=== PATIENT | male | born 1950 | race Caucasian/White ===

== ENCOUNTER 2016-04-02 00:57 | Emergency (ER) | payer OTHER, BC ==
[~2016-04-02] VITALS: Ht 170.2 cm; Wt 81.9 kg
[2016-04-02 01:06] VITALS: TEMP 36.9; Ht 170.2 cm; Wt 81.9 kg
[2016-04-02] MEDS ORDERED: SODIUM CHLORIDE 0.9% 500ML 500 ML IV STA (01:50)
[2016-04-02] MEDS ORDERED: SODIUM CHLORIDE 0.9% 1000ML 1,000 ML IV STA (01:50)
--- NOTE | 2016-04-02 01:57 | EMERGENCY ROOM VISIT NOTE ---
History Report prepared by Logan: Purnima Loza Under the Supervision of: Dr. Cher Parada M.D. First contact with patient: 01:36 Chief Complaint: DEHYDRATION Stated Complaint: VOMITING,DRY MOUTH,CAN'T URINATE Nursing Triage Summary: Patient ambulatory to triage, states "We live in [place] and are here to visit out daughter. This morning, I started getting nauseated. I have vomited a few times today. My mouth is very dry. I haven't urinated since 1800 this evening. I was shivering a lot throughout the day today." Patient denies pain or diarrhea. PMH: "Antibiodies attacking my kidney". History of Present Illness The patient is a 65 year old male who presents to the Emergency Room with complaints of multiple episodes of vomiting since yesterday. He notes that he vomited about 5 times since yesterday morning. His symptoms began while he was travelling from [place] to [place] to visit his daughter. Currently, he complains of a dry mouth. He feels that he is dehydrated, as he has not urinated in 8 hours. Denies fever, chest pain, shortness of breath, abdominal pain, diarrhea, rectal bleeding, or other complaints. He is not a smoker. The patient has a history of proteinuria. Source of History: patient Onset: yesterday morning Position: other (GI) Symptom Intensity: 5 episodes Quality: other (vomiting) Timing: other (episodic) Associated Symptoms: + urinary symptoms (decreased output), No SOB, No abdominal pain, No chest pain, No diarrhea, No fevers Review of Systems See HPI for pertinent positives & negatives. A total of 10 systems reviewed and were otherwise negative. Past Medical & Surgical Medical Problems: (1) Hyperlipidemia (2) Proteinuria Family History No pertinent family history stated. Social History Smoking Status: Never Smoker Marital Status: Housing Status: lives with family Occupation Status: retired Current/Historical Medications Scheduled Aspirin (Aspirin Ec), 81 MG PO DAILY Atorvastatin (Lipitor), 10 MG PO DAILY Tacrolimus (Prograf), 1.5 MG PO QAM Tacrolimus (Prograf), 1 MG PO HS Allergies Coded Allergies: No Known Allergies (Unverified , 04/02/16) Physical Exam Vital Signs Date Time Temp Pulse Resp B/P Pulse Ox O2 Delivery O2 Flow Rate FiO2 04/02/16 06:50 70 19 110/67 97 Room Air 04/02/16 05:54 70 20 101/64 96 Room Air 04/02/16 02:40 74 04/02/16 02:33 74 17 100/66 93 04/02/16 01:06 36.9 77 18 103/62 96 Room Air Physical Exam Vital signs reviewed. General: Elderly, Well-appearing 65 year old male, in no significant distress. HEENT: No scleral icterus, PERRLA, neck supple. Atraumatic. Dry mucous membranes Cardiovascular: Regular rate and rhythm, no extra sounds. Pulmonary: Clear to auscultation bilaterally, normal work of breathing. Abdomen: Soft, nontender, nondistended, positive bowel sounds, no tympani. Musculoskeletal: Atraumatic, no peripheral edema. No CVA tenderness bilaterally Neurologic: Patient awake alert and oriented x 3, full strength in all 4 extremities. Cranial nerves 2 through 12 grossly intact. Skin: Warm, dry, no rash Medical Decision & Procedures Laboratory Results 04/02/16 01:20 Red Blood Count 4.18, Mean Corpuscular Volume 90.0, Mean Corpuscular Hemoglobin 31.3, Mean Corpuscular Hemoglobin Concent 34.8, Mean Platelet Volume 9.8, Neutrophils (%) (Auto) 88.9, Lymphocytes (%) (Auto) 4.5, Monocytes (%) (Auto) 5.4, Eosinophils (%) (Auto) 0.8, Basophils (%) (Auto) 0.2, Neutrophils # (Auto) 9.98, Lymphocytes # (Auto) 0.50, Monocytes # (Auto) 0.61, Eosinophils # (Auto) 0.09, Basophils # (Auto) 0.02 04/02/16 01:20 Test 04/02/16 01:20 04/02/16 03:15 04/02/16 04:52 White Blood Count 11.22 K/uL (4.8-10.8) Red Blood Count 4.18 M/uL (4.7-6.1) Hemoglobin 13.1 g/dL (14.0-18.0) Hematocrit 37.6 % (42-52) Mean Corpuscular Volume 90.0 fL (80-100) Mean Corpuscular Hemoglobin 31.3 pg (25-34) Mean Corpuscular Hemoglobin Concent 34.8 g/dl (32-36) Platelet Count 209 K/uL (130-400) Mean Platelet Volume 9.8 fL (7.4-10.4) Neutrophils (%) (Auto) 88.9 % Lymphocytes (%) (Auto) 4.5 % Monocytes (%) (Auto) 5.4 % Eosinophils (%) (Auto) 0.8 % Basophils (%) (Auto) 0.2 % Neutrophils # (Auto) 9.98 K/uL (1.4-6.5) Lymphocytes # (Auto) 0.50 K/uL (1.2-3.4) Monocytes # (Auto) 0.61 K/uL (0.11-0.59) Eosinophils # (Auto) 0.09 K/uL (0-0.5) Basophils # (Auto) 0.02 K/uL (0-0.2) RDW Standard Deviation 41.0 fL (36.4-46.3) RDW Coefficient of Variation 12.6 % (11.5-14.5) Immature Granulocyte % (Auto) 0.2 % Immature Granulocyte # (Auto) 0.02 K/uL (0.00-0.02) Anion Gap 10.0 mmol/L (3-11) Est Creatinine Clear Calc Drug Dose 41.4 ml/min Estimated GFR () 44.5 Estimated GFR (Non- 38.4 BUN/Creatinine Ratio 17.2 (10-20) Calcium Level 8.1 mg/dl (8.5-10.1) Magnesium Level 1.7 mg/dl (1.8-2.4) Total Bilirubin 0.8 mg/dl (0.2-1) Direct Bilirubin 0.2 mg/dl (0-0.2) Aspartate Amino Transf (AST/SGOT) 17 U/L (15-37) Alanine Aminotransferase (ALT/SGPT) 19 U/L (12-78) Alkaline Phosphatase 66 U/L (45-117) Total Protein 6.6 gm/dl (6.4-8.2) Albumin 3.3 gm/dl (3.4-5.0) Lipase 76 U/L (73-393) Urine Color YELLOW Urine Appearance CLOUDY (CLEAR) Urine pH 5.0 (4.5-7.5) Urine Specific [place] 1.011 (1.000-1.030) Urine Protein TRACE (NEG) Urine Glucose (UA) NEG (NEG) Urine Ketones NEG (NEG) Urine Occult Blood 1+ (NEG) Urine Nitrite NEG (NEG) Urine Bilirubin NEG (NEG) Urine Urobilinogen NEG (NEG) Urine Leukocyte Esterase NEG (NEG) Urine WBC (Auto) 1-5 /hpf (0-5) Urine RBC (Auto) 5-10 /hpf (0-4) Urine Hyaline Casts (Auto) 5-10 /lpf (0-5) Urine Epithelial Cells (Auto) 5-10 /lpf (0-5) Urine Bacteria (Auto) NEG (NEG) Bedside Troponin I 0.000 ng/ml (0-0.045) Laboratory results per my review. Medications Administered Medications (Trade) Dose Ordered Sig/K[place] Route Start Time Stop Time Status Last Admin Dose Admin Sodium Chloride 500 ml @ 999 mls/hr Q31M STAT IV 04/02/16 01:50 04/02/16 02:20 DC 04/02/16 02:30 999 MLS/HR Sodium Chloride (Nss 1000ml) 1,000 ml @ 125 mls/hr Q8H STAT IV 04/02/16 01:50 04/02/16 07:38 DC 04/02/16 02:57 125 MLS/HR Ondansetron HCl (ZOFRAN ODT 4MG Home Pack) 1 homepack UD ONCE PO 04/02/16 05:45 04/02/16 05:46 DC 04/02/16 06:50 1 HOMEPACK ECG Indication: vomiting Rate (beats per minute): 73 Rhythm: normal sinus Findings: Q waves (Anterior), other (nonspecific ST changes anteriorly) ED Course 0145: Past medical records reviewed. The patient was evaluated in room A3. A complete history and physical examination was performed. 0150: Ordered NSS 1000 ml @ 125 mls/hr IV, NSS 500 ml @ 999 mls/hr IV. 0530: Upon reevaluation, the patient appeared to have improvement of his symptoms. I discussed findings with the patient. He verbalized agreement of the treatment plan. The patient was discharged home. 0545: Ordered Ondansetron HCl 1 homepack PO. Medical Decision Differential diagnosis: Etiologies such as gastroenteritis, food borne illness, infections, appendicitis , diverticulitis, inflammatory bowel disease, obstruction, GI bleed, biliary pathology, as well as others were entertained. This patient was evaluated and appeared to be in no significant distress. IV access was obtained and laboratory work was drawn. The patient was placed on the rehabilitation program coordinator. He was medicated with IV Zofran for nausea. Patient was hydrated with normal saline solution. Laboratory work reveals a mild leukocytosis and a creatinine of 1.8. The patient is not familiar with his normal creatinine level however he is aware that he has some renal insufficiency. The patient has had no further vomiting. He was discharged with a Zofran home pack. He will drink plenty of fluids and advance his diet slowly as tolerated. Patient was advised to follow-up with his primary care physician upon return home to [place]. He will return to the ER for worsening of symptoms or any medical concerns. Impression Primary Impression: Vomiting Additional Impression: Chronic renal insufficiency Scribe Attestation The scribe's documentation has been prepared under my direction and personally reviewed by me in its entirety. I confirm that the note above accurately reflects all work, treatment, procedures, and medical decision making performed by me. Departure Information Dispostion Home / Self-Care Referrals No Doctor, Assigned (PCP) Patient Instructions [facility] Additional Instructions Diagnosis: Vomiting, chronic renal insufficiency Drink plenty of clear fluids. Avoid greasy foods, spicy foods and dairy products until symptoms resolve. Zofran 4 mg every 6 hours as needed for nausea. Follow-up with your physician this week for reevaluation. Return to the ER for worsening of symptoms or any medical concerns. Problem Qualifiers Primary Impression: Vomiting Vomiting type: unspecified Vomiting Intractability: non-intractable Nausea presence: with nausea Qualified Codes: R11.2 - Nausea with vomiting, unspecified Additional Impression: Chronic renal insufficiency Chronic kidney disease stage: unspecified stage Qualified Codes: N18.9 - Chronic kidney disease, unspecified
[2016-04-02 02:08] LABS: BASO % 0.2 %; BASO ABS # 0.02 K/uL (0-0.2); COMPLETE YES; EOS % 0.8 %; HEMATOCRIT 37.6 % (42-52); IG% 0.2 %; LYMPH % 4.5 %; MEAN CORPUSCULAR HEMOGLOBIN 31.3 pg (25-34); MEAN CORPUSCULAR HGB CONC 34.8 g/dl (32-36); MEAN PLATELET VOLUME 9.8 fL (7.4-10.4); MONO % 5.4 %; NEUT % 88.9 %; PLATELET COUNT 209 K/uL (130-400); RED BLOOD COUNT 4.18 M/uL (4.7-6.1); WHITE BLOOD COUNT 11.22 K/uL (4.8-10.8)
[2016-04-02 02:26] LABS: BUN/CREATININE RATIO 17.2 (10-20); CALCIUM 8.1 mg/dl (8.5-10.1); CREATININE 1.8 mg/dl (0.60-1.40); MAGNESIUM 1.7 mg/dl (1.8-2.4); POTASSIUM 3.7 mmol/L (3.5-5.1)
[2016-04-02] MEDS ORDERED: ATOR10TA88 PO (02:28)
[2016-04-02] MEDS ORDERED: TACR1CAP PO ×2 (02:29)
[2016-04-02] MEDS ORDERED: ASPI81TA28 PO (02:30)
[2016-04-02 03:31] LABS: URINE APPEARANCE CLOUDY (CLEAR); URINE BILIRUBIN NEG (NEG); URINE COLOR YELLOW; URINE NITRITE NEG (NEG); URINE SPECIFIC GRAVITY 1.011 (1.000-1.030); UROBILINOGEN NEG (NEG); ZZUR CULT IF INDIC CLEAN CATCH NO
[2016-04-02 03:34] LABS: MANUAL MICROSCOPIC REQUIRED? NO; REVIEW REQ? NO
[2016-04-02] MEDS ORDERED: ONDANSETRON HOME PACK 4MG OD TAB PO ONE (05:45)
[2016-04-02 06:50] VITALS: BP 110/67; PULSE 70; O2SAT 97
== END 2016-04-02 06:55 | disposition home or self-care (01) ==
LOC: C.EDB 00:59 → C.EDA 06:55
DX: R11.10 Vomiting, unspecified (principal); N18.9 Chronic kidney disease, unspecified; E78.5 Hyperlipidemia, unspecified; R80.9 Proteinuria, unspecified; Z79.82 Long term (current) use of aspirin; Z79.899 Other long term (current) drug therapy